=== PATIENT | male | born 1975 | race Caucasian/White ===

== ENCOUNTER 2022-07-03 04:45 | Emergency (ER) | payer BC, OTHER, SELFPAY ==
[2022-07-03] VITALS (10 sets, daily range): BP systolic 109–128; BP diastolic 64–71; PULSE 100–130; RESP 18–28; TEMP 36.4–36.8; O2SAT 97–100
--- NOTE | ~2022-07-03 | CT_ITS ---
EXAMINATION: CTA chest PE protocol DATE: 07/03/2022 06:25 INDICATION: Chest pain. Overdose. TECHNIQUE: Computed tomography angiography (CTA) of the chest was performed with 100 mL Omnipaque-350 intravenous contrast timed to evaluate the pulmonary arteries. Coronal maximum intensity projection 3D-reconstructions were created by the technologist. Automated exposure control and iterative reconst ruction technique were employed. The dose-length product was 661.97 mGy-cm. COMPARISON: Chest 2 views 07/03/2022 FINDINGS: There is mild emphysema. There is mild atelectasis bilaterally. No pleural effusion. The he art size is normal. No pericardial effusion. There is no pulmonary embolus. There is mild thoracic sp ondylosis. There is a hemangioma in T1 vertebral body. IMPRESSION: 1. No pulmonary embolus. Sensitivity is severely decreased by motion artifact. 2. Mild emphysema. Reviewed, dictated and finalized at location A. [employer]
--- NOTE | ~2022-07-03 | XR_ITS ---
EXAMINATION: XR chest 2V DATE: 07/03/2022 05:48 INDICATION: Chest pain. Overdose. TECHNIQUE: Frontal and lateral views of the chest were obtained. COMPARISON: Chest CT 07/03/22 FINDINGS: The chest demonstrates clear lungs without pneumonia, pleural effusion, or pneumothorax. Th e heart size is normal. IMPRESSION: 1. No acute cardiopulmonary disease. Reviewed, dictated and finalized at location A. [employer]
--- NOTE | 2022-07-03 04:48 | ED.CHESTPAIN ---
HPI - Chest Pain General Chief Complaint: Overdose Stated Complaint: Difficulty Breathing Time Seen by Provider: 07/03/22 04:48 Source: patient, EMS and RN notes reviewed Mode of arrival: EMS Limitations: no limitations History of Present Illness HPI narrative: patient states that he shot up with methamphetamines but an hour prior to arrival. Began having chest pain and pain going to his back. He describes it as pressure. Feels like his stomach is bloated. He denies any nausea vomiting, diaphoresis. His feeling short of breath along with that. MD complaint: chest pain Onset (ago): hour(s) (1) Timing of current episode: constant Prior episodes: No Onset: associated with drug use Pain location: substernal Pain radiation: back Severity: moderate Quality: tightness and sharp Relieving factors: nothing Exacerbating factors: movement Treatment prior to arrival: none Related Data Home Medications Medication Instructions Recorded Confirmed No Home Medications 07/03/22 07/03/22 Allergies Allergy/AdvReac Type Severity Reaction Status Date / Time No Known Allergies Allergy Verified 07/03/22 04:51 Review of Systems Review of Systems: All systems reviewed & are unremarkable except as noted in HPI and below Constitutional: Constitutional: Denies chills, Denies excessive sweating and Denies fever(s) Cardiovascular: Cardiovascular: Reports as per HPI Respiratory: Respiratory: Reports dyspnea Gastrointestinal: Gastrointestinal: Denies nausea and Denies vomiting PMFSH Social History Social History (Updated 07/03/22 @ 04:53 by Juan F Griffith MD) Smoking status: Current every day smoker Tobacco type: e-cigarettes/vaping Additional smoking assessment comments: Use to smoke cigarettes now he vapes Alcohol intake: current Substance use: current Substance use type: IV drugs and methamphetamine Exam Const: General: healthy appearing, alert and anxious Nutritional Appearance: well nourished Orientation/consciousness: patient oriented x3 Limitations: no limitations HENMT: Head: normal to inspection Ears: external ears normal Face/Nose/Sinus: Normal external nose present Face and sinus: normal facial exam Mouth: Yes moist mucous membranes Eyes: Alignment and Position: alignment normal and position normal Conjunctivae: conjunctivae normal Pupils: Pinpoint pupils bilaterally EOM: EOMs intact bilaterally Neck: Neck: normal visual inspection Chest: Chest palpation & inspection: normal inspection of the chest Resp: Effort & Inspection: normal respiratory effort Auscultation: clear to auscultation bilaterally Cardio: Rate: tachycardic Rhythm: regular rhythm GI: GI Palp: Yes Soft to palpation and No Tenderness to palpation present (GI) Auscultation: normal bowel sounds Back/Spine/Pelvis: Cervical Spine: cervical ROM normal Thoracic/Lumbar Spine: thoraco-lumbar ROM normal Skin: General skin exam: normal color Rashes: no rashes Neuro: General: patient oriented x3, moves all extremities, no focal motor deficits and CN's II-XI intact bilaterally Speech: normal speech Extrem: General: normal to inspection and no clubbing, cyanosis or edema Psych: Mental Status: mental status grossly normal Affect: Anxious affect present Attitude: cooperative Course Course Emergency Course: patient received Ativan 2 mg. He had improvement in his heart rate and his chest pain resolved. He slept and now he is trying to find a ride home. Vital Signs Vital signs: Vital Signs Temperature 36.4 C 07/03/22 04:45 Pulse Rate 130 H 07/03/22 04:45 Respiratory Rate 28 H 07/03/22 04:45 Blood Pressure 128/69 07/03/22 04:45 Pulse Oximetry 98 07/03/22 04:45 Oxygen Delivery Room Air 07/03/22 04:45 Temperature 36.8 C 07/03/22 07:09 Pulse Rate 100 07/03/22 07:09 Respiratory Rate 18 07/03/22 07:09 Blood Pressure 109/69 07/03/22 07:09 Pulse Oximetry 100 07/03/22 07:09 [employer]
--- NOTE | 2022-07-03 04:57 | ECG_ITS ---
Measurements Intervals [place] Rate: 118 P: 46 WV: 139 QRS: 55 QRSD: 92 T: 57 QT: 342 QTc: 480 Interpretive Statements SINUS TACHYCARDIA POSSIBLE LEFT ATRIAL ENLARGEMENT MINIMAL Q WAVES- ANTEROLAT/INF LEADS BASELINE ARTIFACT- I, III, AVR, AVL, AVF, V1-V2 ABNORMAL ECG NO PREVIOUS ECG AVAILABLE FOR COMPARISON Electronically Signed On 07-03-2022 6:49:47 [employer] by Steven Cruz D.O.
[2022-07-03] MEDS: LORazepam INJ (*CRX) 2 MG/ML VIAL IV PUSH (05:03)
[2022-07-03 05:17] LABS: Basophils Absolute Auto 0.03 K/mm3 (0.00-0.10); Basophils Percent Auto 0.3 % (0.0-1.0); Eosinophils Absolute Auto 0.01 K/mm3 (0.02-0.50); Eosinophils Percent Auto 0.1 % (1.0-6.0); Hematocrit 38.8 % (40.0-54.0); Hemoglobin 12.9 g/dL (14.0-18.0); Immature Granulocyte Absolute 0.05 K/mm3 (0.00-0.00); Immature Granulocyte Percent A 0.5 % (0.0-0.0); Lymphocytes Absolute Auto 0.38 K/mm3 (1.10-4.50); Lymphocytes Percent Auto 4.1 % (18.0-42.0); Mean Corpuscular HGB Conc 33.2 g/dL (32.0-36.0); Mean Corpuscular Hemoglobin 28.7 pg (27.0-31.0); Mean Corpuscular Volume 86.2 fL (78.0-102.0); Mean Platelet Volume 7.9 fl (8.7-11.0); Monocytes Absolute Auto 0.01 K/mm3 (0.10-0.90); Monocytes Percent Auto 0.1 % (2.0-11.0); Neutrophils Absolute Auto 8.8 K/mm3 (1.7-7.2); Neutrophils Percent Auto 94.9 % (50.0-70.0); Platelet Count Result 277 K/mm3 (150-420); Red Cell Distribution Width 13.5 % (11.6-14.4); White Blood Count 9.2 K/mm3 (4.8-10.8)
[2022-07-03 05:37] LABS: Alanine Aminotransferase 183 U/L (16-63); Albumin Level 3.4 g/dL (3.4-5.0); Alkaline Phosphatase 137 U/L (46-116); Anion Gap 11 mmol/L (8-16); Aspartate Amino Transferase 234 U/L (15-37); Bilirubin,Total 0.4 mg/dL (0.00-1.00); Blood Urea Nitrogen 20 mg/dL (7-18); Calcium 8.4 mg/dL (8.5-10.1); Carbon Dioxide 24 mmol/L (21-32); Chloride 103 mmol/L (98-108); Estimated CRCL calculation 61 ml/min; Estimated Glomerular Filt Rate 57; Glucose 102 mg/dL (70-99); Osmolality Calculated 288 mOsm/kg (285-295); Potassium 3.6 mmol/L (3.5-5.1); Sodium 138 mmol/L (136-145); Total Protein 6.7 g/dL (6.4-8.2)
[2022-07-03 05:38] LABS: Partial Thromboplastin Time 23.2 SEC (23.90-30.70); Prothrombin Time 10.9 Seconds (9.50-12.10)
[2022-07-03 05:42] LABS: Troponin I 4.3 ng/L (0.00-60.4)
[2022-07-03 05:54] LABS: D Dimer 16.07 mg/L (0.19-0.50)
--- NOTE | 2022-07-03 07:02 | PC.NURSE ---
DR Griffith spoke to pt about d/c home and needing ride. Pt is still under influence of meth and somewhat lethargic and unable to accurately make phone call to friend on his own. Attempting to make call to pts. friend for pickup but no answer. Pt is able to follow commands but is having trouble using his phone. VSS at this time.
== END 2022-07-03 07:11 | disposition home or self-care (01) ==
PROVIDERS: Emergency Provider Emergency Medicine
DX: F15.10 Other stimulant abuse, uncomplicated (principal)
CPT/HCPCS: 36415; 71046; 71275; 80053; 80307; 84484; 85025; 85380; 85610; 85730; 93005; 96374; 99284; J2060; Q9967

== ENCOUNTER 2024-03-07 12:46 | Emergency (ER) | payer OTHER, SELFPAY ==
[2024-03-07 12:57] VITALS: BP 114/81; PULSE 88; RESP 16; TEMP 36.5; O2SAT 99
--- NOTE | 2024-03-07 13:05 | ED.DENTAL ---
HPI - Dental/Oral General Chief complaint: Dental/Oral Stated complaint: Abscess Time Seen by Provider: 03/07/24 13:06 Source: patient Mode of arrival: ambulatory Limitations: no limitations History of Present Illness HPI Narrative: 48-year-old male presents with complaint of left lower dental swelling. Was seen here March 03 for same complaint. Started clindamycin. States now left lymph node is swollen. No dental pain at this time. Patient states I have a dental abscess . Has called 8 dentist And no dentist able to see him. afebrile. All systems reviewed and negative except as noted above. Related Data Home Medications Medication Instructions Recorded Confirmed clindamycin HCl 300 mg capsule 300 mg PO TID 03/07/24 03/07/24 Allergies Allergy/AdvReac Type Severity Reaction Status Date / Time No Known Allergies Allergy Verified 03/07/24 12:51 Review of Systems Review of Systems: CONSTITUTIONAL: Denies fever, chills, or sweats. EYES: Denies visual changes, redness, or discharge. ENT: Denies rhinorrhea, congestion, sore throat, or otalgia. Reports left lower dental pain and swelling CARDIOVASCULAR: Denies chest pain, palpitations, or edema. RESPIRATORY: Denies cough or dyspnea. GASTROINTESTINAL: Denies abdominal pain, nausea, vomiting, or diarrhea. GENITOURINARY: Denies dysuria or hematuria. SKIN: Denies rash or itching. MUSCULOSKELETAL: Denies back pain, joint pain, or myalgia. NEUROLOGIC: Denies headache, numbness, or weakness. PSYCHIATRIC: Denies anxiety or depression. All other systems reviewed are negative, except as documented in HPI. PMFSH Social History Social History (Updated 07/03/22 @ 04:53 by Juan F Griffith, ) Smoking status: Current every day smoker Tobacco type: e-cigarettes/vaping Additional smoking assessment comments: Use to smoke cigarettes now he vapes Alcohol intake: current Substance use: current Substance use type: IV drugs and methamphetamine Comments At time of signature, agree with nursing past medical, surgical, social and family history. There is no relevant family history pertinent to the presenting complaint. Exam Narrative: GENERAL: This is a well-nourished, well-developed patient, in no apparent distress. HEAD: normocephalic, atraumatic. EYES: PERRL. Sclera clear/white. Vision is grossly intact. MOUTH: TO IS BROKEN, DECAYED WITH SURROUNDING ERYTHEMA AND SWELLING. NO FLUCTUANCE NOTED. NECK: Neck supple, non-tender without lymphadenopathy, masses or thyromegaly. CARDIOVASCULAR: Regular rate and rhythm without murmurs, gallops, or rubs. RESPIRATORY: Clear to auscultation. Breath sounds equal bilaterally. No wheezes, rales, or rhonchi. SKIN: warm, Dry, intact with no suspicious lesions or rash, good texture and turgor. NEURO: awake, alert, and oriented to person, place and time. There were no obvious focal neurologic abnormalities. EXTREMITIES: No joint tenderness, effusion, or edema noted. Course Course Level of Care: Express Care Visit Vital Signs Vital signs: Vital Signs Temperature 36.5 C 03/07/24 12:57 Pulse Rate 88 03/07/24 12:57 Respiratory Rate 16 03/07/24 12:57 Blood Pressure 114/81 03/07/24 12:57 Pulse Oximetry 99 03/07/24 12:57 Oxygen Delivery Room Air 03/07/24 12:57 Temperature 36.5 C 03/07/24 12:57 Pulse Rate 88 03/07/24 12:57 Respiratory Rate 16 03/07/24 12:57 Blood Pressure 114/81 03/07/24 12:57 Pulse Oximetry 99 03/07/24 12:57 Oxygen Delivery Room Air 03/07/24 12:57 REVIEWED MDM - Dental/Oral MDM Narrative Medical decision making narrative: patient most likely has dental abscess. Will increase clindamycin from 3 times to 4 times a day. Recommend follow-up with a dentist or to the ER for any worsening of symptoms. No lymphadenopathy noted. Patient is aware of diagnosis, understands and agrees to treatment plan. Anticipatory guidance give
== END 2024-03-07 13:13 | disposition home or self-care (01) ==
PROVIDERS: Emergency Provider Nurse Practitioner Family; PCP Emergency Medicine
DX: K04.7 Periapical abscess without sinus (principal); F17.290 Nicotine dependence, other tobacco product, uncomplicated
CPT/HCPCS: 99213; G0463